=== PATIENT | male | born 1950 | race Caucasian/White ===

== ENCOUNTER → 2022-07-22 | Outpatient (CLI) | payer MEDICARE, OTHER ==
[2022-07-22 14:40] LABS: HEMATOCRIT 40.1 % (42.0-52.0); HEMOGLOBIN 13.5 g/dL (13.5-18.0)
== END ==
LOC: LAB 14:22
PROVIDERS: Internal Medicine
DX: E83.118 Other hemochromatosis (principal); C50.022 Malignant neoplasm of nipple and areola, left male breast

== ENCOUNTER → 2022-09-29 | Outpatient (CLI) | payer MEDICARE, OTHER ==
[2022-09-29 13:25] LABS: HEMATOCRIT 41.4 % (42.0-52.0); HEMOGLOBIN 13.7 g/dL (13.5-18.0)
== END ==
LOC: LAB 12:57
PROVIDERS: Internal Medicine
DX: E83.118 Other hemochromatosis (principal)

== ENCOUNTER → 2023-03-03 | Outpatient (CLI) | payer MEDICARE, OTHER ==
[2023-03-03 13:31] LABS: HEMATOCRIT 39.8 % (42.0-52.0); HEMOGLOBIN 13.6 g/dL (13.5-18.0)
== END ==
LOC: LAB 13:17
PROVIDERS: Internal Medicine
DX: C50.022 Malignant neoplasm of nipple and areola, left male breast (principal); E83.118 Other hemochromatosis

== ENCOUNTER → 2023-04-29 | Outpatient (CLI) | payer MEDICARE, OTHER ==
[2023-04-29 13:58] LABS: BASO # 0.11 K/mm3 (0.02-0.10); EOS # 0.46 K/mm3 (0.04-0.40); EOS % 5.7 % (0.0-4.0); HEMATOCRIT 42.5 % (42.0-52.0); LYMPH# 2.84 K/mm3 (1.50-4.00); MEAN CELL VOLUME 94 fl (78-100); MEAN CORPUSCULAR HEMOGLOBIN 31 pg (27-31); MEAN CORPUSCULAR HGB CONC 33 g/dL (33-37); MEAN PLATELET VOLUME 10.6 fl (7.4-10.4); MONO # 0.68 K/mm3 (0.20-0.80); NEU # 4.02 K/mm3 (1.40-6.50); PLATELET COUNT 202 K/mm3 (130-400); RED CELL DISTRIBUTION WIDTH 13.2 % (11.5-14.5); WHITE BLOOD COUNT 8.1 K/mm3 (4.8-10.8)
== END ==
LOC: LAB 13:35
DX: C50.022 Malignant neoplasm of nipple and areola, left male breast (principal); E83.118 Other hemochromatosis

== ENCOUNTER → 2024-06-09 | Outpatient (CLI) | payer MEDICARE, OTHER ==
[~2024-06-09] VITALS: Ht 185.4 cm; Wt 70.0 kg
[2024-06-09 09:33] LABS: BASO # 0.09 K/mm3 (0.02-0.10); EOS # 0.47 K/mm3 (0.04-0.40); EOS % 5.3 % (0.0-4.0); HEMATOCRIT 43.1 % (42.0-52.0); HEMOGLOBIN 14.2 g/dL (13.5-18.0); LYMPH# 3.02 K/mm3 (1.50-4.00); MEAN CELL VOLUME 93 fl (78-100); MEAN CORPUSCULAR HEMOGLOBIN 31 pg (27-31); MEAN CORPUSCULAR HGB CONC 33 g/dL (33-37); MEAN PLATELET VOLUME 10.1 fl (7.4-10.4); MONO # 0.71 K/mm3 (0.20-0.80); NEU # 4.61 K/mm3 (1.40-6.50); PLATELET COUNT 247 K/mm3 (130-400); RED BLOOD COUNT 4.62 M/mm3 (4.20-5.60); RED CELL DISTRIBUTION WIDTH 13.1 % (11.5-14.5); WHITE BLOOD COUNT 8.9 K/mm3 (4.8-10.8)
[2024-06-09 09:35] VITALS: BP 163/77
== END ==
LOC: AMSURD 08:55
DX: C50.022 Malignant neoplasm of nipple and areola, left male breast (principal); E83.118 Other hemochromatosis